=== PATIENT | female | born 1990 | race African-American/Black ===

== ENCOUNTER 2021-03-09 02:44 | Emergency (ER) | payer MEDICAID ==
[~2021-03-09] VITALS: Ht 162.6 cm; Wt 93.0 kg
[2021-03-09 02:50] VITALS: BP 140/72
[2021-03-09] MEDS ORDERED: KETOROLAC 60MG/2ML VIAL IM STA (03:06)
[2021-03-09] MEDS ORDERED: AMOX-494 MT (03:14)
[2021-03-09] MEDS ORDERED: IBUP-2029 PO (03:14)
== END 2021-03-09 03:28 | disposition home or self-care (01) ==
LOC: ER 02:44
DX: K02.9 Dental caries, unspecified (principal)
CPT/HCPCS: 96372; 99283; J1885

== ENCOUNTER 2021-03-12 03:31 | Emergency (ER) | payer MEDICAID ==
[~2021-03-12] VITALS: Ht 162.6 cm; Wt 93.0 kg
[~2021-03-12 03:31] MED LIST: AMOX-494 MT; IBUP-2029 PO
[2021-03-12] MEDS ORDERED: HYDROCODONE/ACETAMINOPHEN 5/325MG TABLET PO ONE (04:00)
[2021-03-12 04:01] VITALS: BP 135/85
[2021-03-12] MEDS ORDERED: HYDR-4001 MT (04:26)
== END 2021-03-12 04:58 | disposition home or self-care (01) ==
LOC: ER 03:31
DX: K08.89 Other specified disorders of teeth and supporting structures (principal); R03.0 Elevated blood-pressure reading, without diagnosis of hypertension
CPT/HCPCS: 99283